=== PATIENT | male | born 1950 | race African-American/Black ===

== ENCOUNTER 2020-01-11 04:14 | Emergency (ER) | payer OTHER ==
[~2020-01-11] VITALS: Ht 180.3 cm; Wt 102.1 kg
[2020-01-11] MEDS ORDERED: METOPROLOL SUCC50 MG PO (04:23)
[2020-01-11] MEDS ORDERED: LISINOPRIL10 MG PO (04:24)
[2020-01-11] MEDS ORDERED: NORVASC 2.5 MG2.5 M1 PO (04:24)
[2020-01-11] MEDS ORDERED: LIPITOR40 MG PO (04:25)
[2020-01-11 05:13] VITALS: BP 162/92
== END 2020-01-11 05:15 | disposition home or self-care (01) ==
LOC: ER 04:14
DX: T65.891A Toxic effect of other specified substances, accidental (unintentional), initial encounter (principal); R45.4 Irritability and anger; I10 Essential (primary) hypertension; Z79.899 Other long term (current) drug therapy; Y92.098 Other place in other non-institutional residence as the place of occurrence of the external cause